=== PATIENT | female | born 1975 | race Hispanic/Latino ===

== ENCOUNTER 2017-09-27 10:15 | Emergency (ER) | payer SELFPAY ==
[2017-09-27] MEDS ORDERED: TORADOL IM ONE (11:51)
--- NOTE | 2017-09-27 11:55 | Emergency Department Report ---
ED Back Pain/Injury HPI - General Chief Complaint: Back Pain/Injury Stated Complaint: BACK PAIN Time Seen by Provider: 09/27/17 11:43 Source: patient Limitations: No Limitations - History of Present Illness Initial Comments: Patient is 42 years old female with history of chronic back pain and sciatica. Patient stated that she follow at [facility] and she was given baclofen and Neurontin that her symptoms are not improving. Patient stated that she's been having a flareup for the last 3-4 days. She subsequently primary care physician that she wants something to help with her pain now until she follow- up with her primary doctor. Patient denied any recent injury, fever, bowel or bladder incontinence, weakness numbness or tingling sensation. MD Complaint: back pain Similar Symptoms Previously: Yes - Related Data Allergies Allergy/AdvReac Type Severity Reaction Status Date / Time No Known Allergies Allergy Unverified 09/27/17 10:34 ED Review of Systems ROS: Stated complaint: BACK PAIN Other details as noted in HPI Comment: All other systems reviewed and negative Eyes: denies: eye pain Respiratory: denies: cough Cardiovascular: denies: chest pain Endocrine: denies: flushing Gastrointestinal: denies: abdominal pain Skin: denies: rash Neurological: denies: headache, weakness, numbness, paresthesias, confusion, abnormal gait ED Past Medical Hx - Past Medical History Previous Medical History?: Yes Additional medical history: siatica - Surgical History Past Surgical History?: Yes Hx Cholecystectomy: Yes Additional Surgical History: x 3 - Social History Smoking Status: Current Every Day Smoker Substance Use Type: Alcohol ED Physical Exam - General Limitations: No Limitations General appearance: alert, in no apparent distress - Head Head exam: Present: atraumatic, normocephalic - Eye Eye exam: Present: normal appearance - ENT ENT exam: Present: normal exam, normal orophraynx, mucous membranes moist, normal external ear exam - Neck Neck exam: Present: normal inspection, full ROM. Absent: tenderness, meningismus - Respiratory Respiratory exam: Absent: respiratory distress, wheezes, rales, rhonchi - Cardiovascular Cardiovascular Exam: Present: regular rate, normal heart sounds. Absent: normal rhythm, bradycardia, tachycardia, irregular rhythm, systolic murmur, diastolic murmur - GI/Abdominal GI/Abdominal exam: Present: soft. Absent: distended, tenderness, guarding - Extremities Exam Extremities exam: Present: normal inspection, full ROM, normal capillary refill - Back Exam Back exam: Present: normal inspection, full ROM. Absent: tenderness, CVA tenderness (R), CVA tenderness (L), muscle spasm, paraspinal tenderness, vertebral tenderness - Neurological Exam Neurological exam: Present: alert, oriented X3, CN II-XII intact, normal gait, reflexes normal - Skin Skin exam: Present: warm, intact, normal color ED Course Vital Signs 09/27/17 10:34 Temperature 97.9 F Pulse Rate 87 Respiratory 18 Rate Blood Pressure 152/97 O2 Sat by Pulse 96 Oximetry Critical care attestation.: If time is entered above; I have spent that time in minutes in the direct care of this critically ill patient, excluding procedure time. ED Disposition Clinical Impression: Back pain Disposition: DC-01 TO HOME OR SELFCARE Is pt being admited?: No Condition: Stable Instructions: Sciatica (ED) Referrals: PRIMARY CARE, [Primary Care Provider] - 3-5 Days
[2017-09-27 12:08] VITALS: BP 156/72
== END 2017-09-27 12:06 | disposition home or self-care (01) ==
LOC: ED 10:15
DX: M54.9 Dorsalgia, unspecified (principal); G89.29 Other chronic pain; Z90.49 Acquired absence of other specified parts of digestive tract; F17.200 Nicotine dependence, unspecified, uncomplicated
CPT/HCPCS: 96372; 99282; J1885

== ENCOUNTER 2017-10-06 15:09 | Emergency (ER) | payer SELFPAY ==
[2017-10-06 15:19] VITALS: BP 128/98
[2017-10-06] MEDS ORDERED: TORADOL IM ONE (15:43)
[2017-10-06] MEDS ORDERED: DECADRON IM ONE (15:43)
--- NOTE | 2017-10-06 17:16 | Emergency Department Report ---
ED Extremity Problem HPI - General Chief complaint: Back Pain/Injury Stated complaint: BACK LEG PAIN Time Seen by Provider: 10/06/17 15:35 Source: patient, EMS Mode of arrival: Stretcher Limitations: Physical Limitation - History of Present Illness Initial comments: She is a 42-year-old female who presented with left lower lower extremity pain as well as left back pain. Patient states that she feels as though her hip and leg are broken despite sheet of the fact she has not fallen. Patient was diagnosed with sciatica approximately a week ago. Patient is taken out of the hydrocodone that were prescribed. Patient states it hurts when she moves also hurts to sit on that side side especially on the toilet. Patient denies any bowel or bladder dysfunction at this time. Patient states she has not followed up and she does not have insurance. Severity scale (0 -10): 10 - Related Data Previous Rx's Medication Instructions Recorded Last Taken Type HYDROcodone/APAP 5-325 [[place] 1 each PO Q6HR PRN #14 tablet 09/27/17 Unknown Rx 5/325] Ondansetron [Zofran Odt] 4 mg PO Q8HR PRN #14 tab.rapdis 09/27/17 Unknown Rx Diclofenac Sodium 50 mg PO BID #20 tablet. 10/06/17 Unknown Rx methOCARBAMOL [Robaxin TAB] 500 mg PO Q6H PRN #15 tablet 10/06/17 Unknown Rx Allergies Allergy/AdvReac Type Severity Reaction Status Date / Time No Known Allergies Allergy Unverified 09/27/17 10:34 ED Review of Systems ROS: Stated complaint: BACK LEG PAIN Other details as noted in HPI Comment: All other systems reviewed and negative ED Past Medical Hx - Past Medical History Additional medical history: siatica - Surgical History Hx Cholecystectomy: Yes Additional Surgical History: x 3 - Social History Smoking Status: Current Every Day Smoker Substance Use Type: Alcohol - Medications Home Medications: Home Medications Medication Instructions Recorded Confirmed Last Taken Type HYDROcodone/APAP 5-325 [[place] 1 each PO Q6HR PRN #14 tablet 09/27/17 Unknown Rx 5/325] Ondansetron [Zofran Odt] 4 mg PO Q8HR PRN #14 tab.rapdis 09/27/17 Unknown Rx Diclofenac Sodium 50 mg PO BID #20 tablet. 07/28/18 Unknown Rx methOCARBAMOL [Robaxin TAB] 500 mg PO Q6H PRN #15 tablet 10/06/17 Unknown Rx ED Physical Exam - General Limitations: Physical Limitation General appearance: alert, in distress (tearful') - Head Head exam: Present: atraumatic, normocephalic - Eye Eye exam: Present: normal appearance - ENT ENT exam: Present: mucous membranes moist - Neck Neck exam: Present: normal inspection - Respiratory Respiratory exam: Present: normal lung sounds bilaterally. Absent: respiratory distress - Cardiovascular Cardiovascular Exam: Present: regular rate, normal rhythm. Absent: systolic murmur, diastolic murmur, rubs, gallop - GI/Abdominal GI/Abdominal exam: Present: soft, normal bowel sounds - Extremities Exam Extremities exam: Present: normal inspection - Back Exam Back exam: Present: normal inspection - Neurological Exam Neurological exam: Present: alert, oriented X3 - Psychiatric Psychiatric exam: Present: normal affect, normal mood - Skin Skin exam: Present: warm, dry, intact, normal color. Absent: rash ED Course Vital Signs 10/06/17 15:15 Temperature 98.4 F Pulse Rate 81 Respiratory 24 Rate Blood Pressure 128/98 O2 Sat by Pulse 100 Oximetry ED Medical Decision Making - Radiology Data Ultrasound of the left lower extremity Doppler shows no DVT - Medical Decision Making Patient was started on diclofenac for pain as well as Robaxin the patient be discharged home for follow-up sounds at [facility] Critical care attestation.: If time is entered above; I have spent that time in minutes in the direct care of this critically ill patient, excluding procedure time. ED Disposition Clinical Impression: Sciatica Qualifiers: Laterality: left Qualified Code(s): M54.32 - Sciatica, left side Disposition: - TO HOME OR SELFCARE Is pt being admited?: No Does the pt Need Aspirin: No Condition: Stable Instructions: Lumbar Radiculopathy (ED) Referrals: ELLIOT SHETH MD [Staff Physician] - 3-5 Days [facility] [Outside] - 3-5 Days
== END 2017-10-06 17:45 | disposition home or self-care (01) ==
LOC: ED 15:09
DX: M54.32 Sciatica, left side (principal); F17.200 Nicotine dependence, unspecified, uncomplicated; Z90.49 Acquired absence of other specified parts of digestive tract
CPT/HCPCS: 93971; 96372; 99284; J1100; J1885